=== PATIENT | male | born 1955 | race Caucasian/White ===

== ENCOUNTER 2021-10-03 10:04 | Emergency (ER) | payer MEDICARE | END 2021-10-03 11:30 | disposition left against medical advice (07) | LOC: ER1 10:04 | DX: I70.201 Unspecified atherosclerosis of native arteries of extremities, right leg (principal); F17.200 Nicotine dependence, unspecified, uncomplicated; I10 Essential (primary) hypertension; Z88.0 Allergy status to penicillin | CPT/HCPCS: 99283 ==

== ENCOUNTER → 2021-10-03 | Outpatient (CLI) | payer MEDICARE | LOC: EXRD 07:39 | DX: I70.201 Unspecified atherosclerosis of native arteries of extremities, right leg (principal); M79.604 Pain in right leg; I77.9 Disorder of arteries and arterioles, unspecified | CPT/HCPCS: 93926; 93971 ==